=== PATIENT | male | born 1960 | race Caucasian/White ===

== ENCOUNTER 2017-10-13 17:59 | Emergency (ER) | payer BC, OTHER ==
[~2017-10-13 17:59] MED LIST changes: +ISOVUE-370 76%-LOCM 1 ML ONE; -Iopamidol 370 76% 100 ML VIAL ONE
--- NOTE | 2017-10-13 19:58 | CT ---
CTA OF THE CHEST WITH CONTRAST 10/13/17 COMPARISON: None. HISTORY: Chest and back pain. 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 Evaluate for pu lmonary thromboembolism. TECHNIQUE: Multiple contiguous axial images were obtained in a CTA of the chest with contrast per pulmonary embo lism protocol. 3D oblique MIP reformats and direct coronal reformats were performed. FINDINGS: The heart is normal in size without focal cardiac abnormality. The pulmonary arteries are well opacif ied without filling defects to suggest pulmonary emboli. There is mild thickening of the pericardium without a pericardial effusion. There may be subtle stranding adjacent to the pericardium. No hilar o r mediastinal lymphadenopathy are seen. No focal infiltrates or nodules are seen in the lungs. No pneumothorax or pleural effusion are seen. Degenerative changes are seen in the spine. The visualized subdiaphragmatic structures are unremarkable. The chest wall soft tissues are unremark able. IMPRESSION: 1. No evidence of pulmonary thromboembolism. 2. There is thickening of the pericardium with questionable surrounding stranding changes. This could be secondary to pericarditis. POS: MARIA LUISA
== END 2017-10-13 20:15 | disposition home or self-care (01) ==
LOC: ERS 17:59
DX: I31.9 Disease of pericardium, unspecified (principal); E78.5 Hyperlipidemia, unspecified; F43.9 Reaction to severe stress, unspecified; Z79.899 Other long term (current) drug therapy; Z79.82 Long term (current) use of aspirin
CPT/HCPCS: 71275

== ENCOUNTER → 2017-10-13 | Emergency (ER) | payer OTHER ==
[~2017-10-13] MED LIST: Iopamidol 370 76% 100 ML VIAL ONE
[2017-10-13 16:33] LABS: #Lymphocytes 0.8 thou/uL (1.20-3.40); #Monocytes 0.8 thou/uL (0.11-0.59); #Neutrophils 12.2 thou/uL (1.40-6.50); %Basophils 0.1 % (0.0-1.0); %Eosinophils 0.2 % (0.0-10.0); %Lymphocytes 6.1 % (21.0-51.0); %Monocytes 5.7 % (0.0-10.0); Hemoglobin 15.2 g/dL (14.0-18.0); Mean Corpuscular HGB CONC 35.1 g/dL (32.0-36.0); Mean Corpuscular Hemoglobin 29.7 pg (27.0-31.0); Mean Corpuscular Volume 84.8 fL (78.0-98.0); Mean Platelet Volume 7.6 fL (7.4-10.4); Platelet Count 258 thou/uL (130-400); RBC Distribution Width 11.7 % (11.5-14.5); Red Blood Cell (RBC) Count 5.11 mill/uL (4.70-6.10); White Blood Cell (WBC) Count 13.8 thou/uL (4.8-10.8)
[2017-10-13 16:47] LABS: ALT (SGPT) 12 U/L (8-55); AST (SGOT) 16 U/L (5-34); Albumin 4.4 g/dL (3.5-5.0); Alkaline Phosphatase 80 U/L (40-150); Anion Gap 15 mmol/L (10-20); BUN (Urea Nitrogen) 18 mg/dL (8.4-25.7); Bilirubin, Total 0.7 mg/dL (0.2-1.2); Calc. Creatinine Clearance 0 mL/min (70-130); Calcium 9.5 mg/dL (7.8-10.44); Carbon Dioxide 23 mmol/L (22-29); Chloride 102 mmol/L (98-107); Estimated GFR-MDRD 74; Globulin 2.6 g/dL (2.4-3.5); Glucose 155 mg/dL (70-105); Sodium 136 mmol/L (136-145)
[2017-10-13 16:50] LABS: Troponin I Less than 0.010 ng/mL (< 0.028)
--- NOTE | 2017-10-13 17:30 | CON ---
CARDIOLOGY CONSULTATION DATE OF CONSULTATION: 10/13/2017 REASON FOR CONSULTATION: Chest pain. HISTORY OF PRESENT ILLNESS: Mr. Garcia is a very pleasant 57-year-old white gentleman who comes to the hospital for chest pain. She actually had back pain and mid scapula. He felt like it was a cramp. He went to see his PCP who did an EKG and showed inferior ST elevations. So, he was transferred imm ediately to the hospital with a STEMI protocol. The STEMI was activated. He did have an EKG that wa s back to normal. He was pain free; however, he did have elevation in the original EKG, so he was ta jude to the center medical and lab [facility] where he was found to have no significant coronary artery disease. His LV functi on was normal. PAST MEDICAL HISTORY: 1. ADHD. 2. Hyperlipidemia. SOCIAL HISTORY: No alcohol, tobacco or drugs. FAMILY HISTORY: Mother of congestive heart failure. OUTPATIENT MEDICATIONS: Include, 1. Vyvanse 50 mg a day. 2. Aspirin 325 a day. ALLERGIES: No known drug allergies. REVIEW OF SYSTEMS: A 12-point review of systems was done and is all negative unless stated in the hi story of present illness. PHYSICAL EXAMINATION: VITAL SIGNS: Temperature 98.5, respiratory rate 16, blood pressure 130/81, pulse 96, satting 100% on room air. GENERAL: Awake, alert, oriented x3, in no distress. HEENT: Normocephalic, atraumatic. NECK: Supple. LUNGS: Clear. CARDIOVASCULAR: S1, S2, no S3, S4, no murmurs, no rubs. ABDOMEN: Soft, positive bowel sounds. EXTREMITIES: No edema. SKIN: Warm and dry. LABORATORY WORK: Strip is pending. ASSESSMENT AND PLAN: 1. Chest pain, unlikely to be cardiac. He had a normal heart catheterization. 2. Would recommend doing a CT per PE protocol to make sure this is not a PE. He is concerned as wel l of this being lung cancer, I do not think he has any risks for this at this time; however, a CT of the chest would look at this as well. Otherwise, most likely may be related to his recent ketogenic diet and we will recommend that he stop his diet and is getting healthy exercise regimen. Thank you for letting us to participate in the care of your patient.
== END ==
LOC: ERS 16:16
DX: I21.3 ST elevation (STEMI) myocardial infarction of unspecified site (principal); E78.5 Hyperlipidemia, unspecified; F43.9 Reaction to severe stress, unspecified; Z79.899 Other long term (current) drug therapy
CPT/HCPCS: 36415; 80053; 82553; 83880; 84484; 85025; 85379; 93005; 93458; 94760; C1760; C1769

== ENCOUNTER 2020-06-16 14:03 | Outpatient (CLI) | payer BC ==
[~2020-06-16 14:03] MED LIST changes: -ISOVUE-370 76%-LOCM 1 ML ONE; +Magnevist 469MG/ML 20 ML VIAL ONE
== END 2020-06-16 14:04 | disposition home or self-care (01) ==
LOC: TBSIIMAG 14:03
PROVIDERS: ATTEND Urology
DX: R97.20 Elevated prostate specific antigen [PSA] (principal); M16.0 Bilateral primary osteoarthritis of hip
CPT/HCPCS: 72197; A9579